=== PATIENT | male | born 1970 | race Two or more races ===

== ENCOUNTER 2023-05-24 11:15 | Inpatient (IN) | payer OTHER ==
[~2023-05-24] VITALS: Ht 162.6 cm; Wt 88.9 kg
[2023-05-29] MEDS ORDERED: METHYLPREDNISOLONE SOD SUCC 125 MG VIAL ONE (07:08)
[2023-05-29] MEDS ORDERED: CEFAZOLIN SODIUM 1,000 MG VIAL ONE ×2 (07:08→10:32)
[2023-05-29] MEDS ORDERED: VANCOMYCIN HCL 1,000 MG VIAL ONE (07:09)
[2023-05-29] MEDS ORDERED: ACETAMINOPHEN-1 EAC2 PO (07:27)
[2023-05-29] MEDS ORDERED: COLACE100 MG PO (07:27)
[2023-05-29] MEDS ORDERED: MEDROLPACK PO (07:27)
[2023-05-29] MEDS ORDERED: 0.9 % SODIUM CHLORIDE 1,000 ML IV SCH (07:30)
[2023-05-29] MEDS ORDERED: PROMETHAZINE HCL 50 MG/ML AMPUL IM PRN (07:30)
[2023-05-29] MEDS ORDERED: ENALAPRILAT DIHYDRATE 1.25 MG/ML VIAL IV PRN (07:30)
[2023-05-29] MEDS ORDERED: METHYLPREDNISOLONE ACETATE 80 MG/ML VIAL ONE (08:05)
[2023-05-29] MEDS ORDERED: HEMOSTATIC MATRIX WITH THROMBIN KIT TOP ONE ×2 (08:27→08:30)
[2023-05-29] MEDS ORDERED: VANCOMYCIN HCL 1,000 MG VIAL IV ONE (08:30)
[2023-05-29] MEDS ORDERED: VANCOMYCIN HCL 1,000 MG VIAL IR ONE (08:30)
[2023-05-29] MEDS ORDERED: CEFAZOLIN SODIUM 1,000 MG VIAL IV ONE (08:30)
[2023-05-29] MEDS ORDERED: ISOPROPYL ALCOHOL 30 ML OUNCE TOP ONE (08:30)
[2023-05-29] MEDS ORDERED: METHYLPREDNISOLONE SOD SUCC 125 MG VIAL IV ONE ×2 (08:30)
[2023-05-29] MEDS ORDERED: METHYLPREDNISOLONE ACETATE 80 MG/ML VIAL IJ ONE (08:30)
[2023-05-29] MEDS ORDERED: FAMOtidine 20 MG TABLET PO SCH (09:00)
[2023-05-29] MEDS ORDERED: DOCUSATE SODIUM 100MG CAP PO SCH (09:00)
[2023-05-29] MEDS ORDERED: METHYLPREDNISOLONE SOD SUCC 125 MG VIAL IV SCH (09:00)
[2023-05-29] MEDS ORDERED: METOPROLOL SUCCINATE 50 MG TAB.SR.24H PO SCH (09:00)
[2023-05-29] MEDS ORDERED: CEFAZOLIN SODIUM 1,000 MG in 0.9 % SODIUM CHLORIDE 50 ML IV SCH (09:00)
[2023-05-29] MEDS ORDERED: VANCOMYCIN HCL 1,000 MG VIAL IV SCH (09:00)
[2023-05-29] MEDS ORDERED: MORPHINE SULFATE 4 MG,MORPHINE SULFATE 2 MG IV SCH (09:00)
[2023-05-29] MEDS ORDERED: INSULIN LISPRO 1,000 UNIT/10 ML UNITS SUBCUTANEO PRN (11:00)
[2023-05-29] MEDS ORDERED: DEXTROSE 50 % IN WATER 0.5 G/ML DISP.SYRIN IV PRN (11:00)
[2023-05-30] MEDS ORDERED: SODIUM CHLORIDE 0.45 % 1,000 ML IV SCH
[2023-05-30] MEDS ORDERED: ACETAMINOPHEN WITH CODEINE 1 UDTAB TABLET PO PRN (05:00)
[2023-05-30] MEDS ORDERED: TAMSULOSIN HCL 0.4 MG CAP PO SCH (09:00)
== END 2023-05-30 12:24 | disposition home or self-care (01) | DRG 473 ==
LOC: SURG 05-29 07:00 → PED 05-29 07:15 → O/R 05-29 07:15 → PED 05-29 09:52 → SURG 05-29 11:15 → PED 05-30 12:24
PROVIDERS: ADMIT Orthopaedic Surgery Orthopaedic Surgery of the Spine; ATTEND Orthopaedic Surgery Orthopaedic Surgery of the Spine
PROC: 0RT30ZZ Resection of Cervical Vertebral Disc, Open Approach (ICD-10-PCS; 2023-05-29)
PROC: 07DS0ZZ Extraction of Vertebral Bone Marrow, Open Approach (ICD-10-PCS; 2023-05-29)
PROC: 4A1104G Monitoring of Peripheral Nervous Electrical Activity, Intraoperative, Open Approach (ICD-10-PCS; 2023-05-29)
PROC: 0RG20A0 Fusion of 2 or more Cervical Vertebral Joints with Interbody Fusion Device, Anterior Approach, Anterior Column, Open Approach (ICD-10-PCS; principal; 2023-05-29 07:00)
DX: M50.31 Other cervical disc degeneration, high cervical region (principal)